=== PATIENT | female | born 1965 | race Caucasian/White ===

== ENCOUNTER 2016-07-29 17:29 | Emergency (ER) | payer OTHER ==
[~2016-07-29] VITALS: Ht 170.2 cm; Wt 59.2 kg
[~2016-07-29 17:29] MED LIST: ADDERALL XR 2525 MG PO; ADDERALL10 M1 PO; ADVAIR 250/501 DISK IH; ADVAIR 500/501 DISK IH; ALBUTEROL SULF8.5 GM IH; ALBUTEROL17 GM IH; ALLEGRA60 MG PO; AMLODIPINE BESYL5 MG PO; ATIVAN0.5 MG PO; ATIVAN1 MG PO; AUGMENTIN875 MG PO; AZITHROMYCIN500 M1 PO; CLINDAMYCIN HC300 MG PO; CYMBALTA30 MG PO; CYMBALTA60 MG PO; DIOVAN HCT 1601 EAC1 PO; DIOVAN160 MG PO; FLAGYL500 MG PO; FLONASE16 G1 BOTH NARES; HYDROCODON-ACE1 EA10 PO; HYDROCODON-ACE1 EAC9 PO; IBUPROFEN800 MG PO; IMITREX100 MG PO; KALETRA 100-251 EACH PO; LASIX10 MG PO; LASIX20 MG PO; LEVAQUIN750 MG PO; LEVOFLOXACIN500 MG PO; LORAZEPAM1 MG PO; LORTAB 10/500 T1 TAB PO; NEXIUM40 MG; NEXIUM40 MG PO; NICODERM CQ1 EAC2 TD; NICOTINE PATCH1 EAC2 TD; PERCOCET 5/31 TABLET PO; PREDNISONE10 MG PO; PRILOSEC20 MG PO; PROMETHAZINE HC25 M1 PO; PROVENTIL,2.5 MG/3 M IH; RELAFEN750 MG PO; SEROQUEL XR150 MG; SINGULAIR10 MG PO; SOMA350 MG PO; SPIRIVA1 INHALATI IH; TRAZODONE HCL100 MG PO; TRUVADA1 TABLET PO; TYLENOL WITH C1 EACH PO; UNABLE TO OBTAIN; VALSARTAN160 MG PO; VENTOLIN HFA18 GM IH; VICODIN HP 10-1 EACH PO; ZOFRAN4 MG PO
[2016-07-29] MEDS ORDERED: INDOCIN25 MG PO (18:54)
[2016-07-29 20:17] VITALS: BP 144/90
== END 2016-07-29 20:18 | disposition home or self-care (01) ==
LOC: EME 17:29
DX: M54.42 Lumbago with sciatica, left side (principal); G89.29 Other chronic pain; I10 Essential (primary) hypertension; J44.9 Chronic obstructive pulmonary disease, unspecified; J45.909 Unspecified asthma, uncomplicated; Z79.891 Long term (current) use of opiate analgesic; F17.200 Nicotine dependence, unspecified, uncomplicated
CPT/HCPCS: 99281; 99283; J1885; J3010

== ENCOUNTER 2016-10-03 11:55 | Emergency (ER) | payer OTHER ==
[~2016-10-03] VITALS: Ht 167.6 cm; Wt 64.1 kg
[~2016-10-03 11:55] MED LIST changes: +INDOCIN25 MG PO
[2016-10-03 12:32] LABS: INTER. NORMALIZED RATIO 1.2; PROTHROMBIN TIME 11.8 (9.2-11.2); PTT 39.5 (25-32)
[2016-10-03 12:40] LABS: AMYLASE 344 IU/L (1-118); CHLORIDE 96 mEq/L (99-109); SODIUM 140 mEq/L (136-147)
[2016-10-03 12:43] LABS: ANION GAP 33 MEQ/L (2-14)
[2016-10-03 12:45] LABS: SERUM ETHYL ALCOHOL < 10 mg/dL
[2016-10-03 12:46] LABS: GFR ESTIMATE (CALCULATED) 24 mL/min/; UREA NITROGEN (BUN) 25 mg/dL (9-23)
[2016-10-03 12:48] LABS: TROP-I INTERPRETATION NEGATIVE; TROPONIN-I 0.06 ng/mL (0.0-0.30)
[2016-10-03 12:49] LABS: LIPASE 163 U/L (1.0-51.0)
[2016-10-03 12:54] LABS: QUANTITATIVE HCG < 4.0 MIU/ML
[2016-10-03 13:04] LABS: POTASSIUM ND mEq/L (3.7-5.4)
[2016-10-03 13:08] LABS: GLUCOSE 37 mg/dL (70-99)
[2016-10-03 13:11] LABS: POINT-OF-CARE METER ID UU13113702
[2016-10-03 13:13] LABS: CARBOXY HGB 4.5 % (0-5); METHEMOGLOBIN 0.8 % (0-1.5); PO2 493 mm Hg (80-100)
[2016-10-03 13:16] LABS: PCO2 78 mm Hg (35-45)
[2016-10-03 13:17] LABS: COMMENTS - BLOOD GASES C+; DEVICE VENT; FI02 100 %; MODE AC; SITE RB; pH < 6.91 (7.35-7.45)
[2016-10-03 13:18] LABS: MECHANICAL RATE 14 resp/min; PEEP 5 CM/H20; TIDAL VOLUME 440 ML; TOTAL RESP RATE 19 resp/min
[2016-10-03 13:32] LABS: ADD MIUA? YES; BILIRUBIN NEGATIVE; BLOOD MODERATE; COLOR YELLOW ((YELLOW)); GLUCOSE (STRIP) >=500; KETONES NEGATIVE; LEUKOCYTES NEGATIVE; NITRITE NEGATIVE; PROTEIN (STRIP) 100; SPECIFIC GRAVITY 1.014 (1.000-1.030); UROBILINOGEN 0.2 MG/DL (0.2-1.0)
[2016-10-03 13:37] LABS: BASOPHIL COUNT 0.1 K/uL (0-0.1); EOSINOPHIL (%) 0.2 % (0-5); HEMATOCRIT 44.4 % (36.0-46.0); IMMATURE GRANULOCYTE (%) 2.1 % (0.0-0.7); IMMATURE GRANULOCYTE COUNT 0.3 K/uL; INSTRUMENT ABS NEUTROPHIL CT 11.7 K/uL; LYMPHOCYTE COUNT 1.9 K/uL (1.0-2.8); MCH 33.3 PG (29.0-34.0); MCHC 29.7 G/DL (30.0-36.0); MCV 112.1 FL (83-99); MEAN PLAT.VOLUME 9.8 uM^3 (9.5-12.4); MONOCYTE (%) 7.9 % (3-12); MONOCYTE COUNT 1.2 K/uL (0-0.8); NEUTROPHIL (%) 77.1 % (45-76); NEUTROPHIL COUNT 11.7 K/uL (1.8-6.4); NRBC (%) 0.3 /100 WBC (0-0); PLATELET COUNT 374 K/uL (156-360); RBC DIS.WIDTH-CV 13.8 % (11.8-14.6); RBC DIS.WIDTH-SD 56.9 % (39-53); RED BLOOD COUNT 3.96 M/uL (3.80-5.20); WHITE BLOOD COUNT 15.2 K/uL (4.1-10.2)
[2016-10-03 13:40] LABS: ADD MEDTOX COMMENT Y; AMPHETAMINE NEGATIVE (500 ng/mL); BACTERIA NONE SEEN /HPF; BARBITURATES NEGATIVE (200 ng/mL); BENZODIAZEPINES NEGATIVE (150 ng/mL); COCAINE NEGATIVE (150 ng/mL); EPITHELIAL CELLS RARE /HPF; HYALINE CASTS 0-5 /LPF; INTERNAL CONTROLS VALID? YES; METHADONE NEGATIVE (200 ng/mL); METHAMPHETAMINE NEGATIVE (500 ng/mL); MUCUS TRACE /LPF; OPIATES (MORPHINE) PRESUMPTIVE POSITIVE (100 ng/mL); OXYCODONE NEGATIVE (100 ng/mL); PHENCYCLIDINE NEGATIVE (25 ng/mL); PROPOXYPHENE NEGATIVE (300 ng/mL); RED BLOOD CELLS 0-5 /HPF (0-5); THC CANNABINOIDS NEGATIVE (50 ng/mL); TRICYCLIC ANTIDEPRESSANTS NEGATIVE (300 ng/mL); UCUL ADDED? NO; WHITE BLOOD CELLS 0-5 /HPF (0-5)
[2016-10-03 13:49] LABS: POTASSIUM 5.8 mEq/L (3.7-5.4)
[2016-10-03 13:56] LABS: CREATINE KINASE 328 IU/L (1-294)
[2016-10-03 14:28] LABS: BASE EXCESS 3.6 mEq/L (-3 to +3); BICARBONATE 34.8 mEq/L (22-26); CARBOXY HGB 3.4 % (0-5)
[2016-10-03 14:41] LABS: COMMENTS - BLOOD GASES C+; DEVICE VENT; FI02 80 %; MECHANICAL RATE 20 resp/min; MODE AC; PCO2 91 mm Hg (35-45); PO2 63 mm Hg (80-100); SITE LF ALINE; TOTAL RESP RATE 22 resp/min; pH 7.19 (7.35-7.45)
[2016-10-03 14:42] LABS: PEEP 5 CM/H20; TIDAL VOLUME 450 ML
[2016-10-03 14:57] LABS: CHLORIDE 95 mEq/L (99-109); SODIUM 144 mEq/L (136-147)
[2016-10-03 15:01] LABS: ANION GAP 29 MEQ/L (2-14); TOTAL BILIRUBIN 0.5 mg/dL (0.0-1.0)
[2016-10-03 15:03] LABS: ALKALINE PHOSPHATASE 90 IU/L (3-129); GFR ESTIMATE (CALCULATED) 28 mL/min/
[2016-10-03 15:04] LABS: UREA NITROGEN (BUN) 28 mg/dL (9-23)
[2016-10-03 15:11] LABS: GLUCOSE 216 mg/dL (70-99)
[2016-10-03 15:12] LABS: POTASSIUM 6.4 mEq/L (3.7-5.4)
[2016-10-03 15:40] LABS: BASE EXCESS 6.7 mEq/L (-3 to +3); BICARBONATE 37.7 mEq/L (22-26); CARBOXY HGB 2.9 % (0-5); METHEMOGLOBIN 0.6 % (0-1.5); PCO2 90 mm Hg (35-45); PO2 71 mm Hg (80-100)
[2016-10-03 15:42] LABS: POINT-OF-CARE METER ID UU13113702
[2016-10-03 15:42] LABS: DEVICE VENT; FI02 80 %; MECHANICAL RATE 20 resp/min; MODE AC; PEEP 5 CM/H20; SITE LF ALINE; TIDAL VOLUME 450 ML; TOTAL RESP RATE 21 resp/min; pH 7.23 (7.35-7.45)
[2016-10-03 15:43] LABS: CREATININE 1.5 mg/dL (0.6-1.3); POTASSIUM 4.3 mEq/L (3.7-5.4)
[2016-10-03 16:12] VITALS: BP 103/73
[2016-10-05 17:36] LABS: POINT-OF-CARE METER ID UU13113702
== END 2016-10-03 16:33 | disposition short-term general hospital (02) ==
LOC: EME → EDBD 11:55 → EME 16:33
PROVIDERS: Emergency Medicine
DX: I46.9 Cardiac arrest, cause unspecified (principal); E16.2 Hypoglycemia, unspecified; E87.5 Hyperkalemia; I95.9 Hypotension, unspecified; J96.02 Acute respiratory failure with hypercapnia; J44.9 Chronic obstructive pulmonary disease, unspecified; J45.909 Unspecified asthma, uncomplicated; I10 Essential (primary) hypertension; F17.200 Nicotine dependence, unspecified, uncomplicated
CPT/HCPCS: 36600; 70450; 71010; 71275; 74177; 80047; 80048; 80053; 81003; 82150; 82550 91; 82803; 82948; 83605; 83690; 84484; 84702; 84999; 85025; 85610; 85730; 86850; 86900; 86901; 87040; 87070; 87077; 87147; 87186; 87205; 93005; 94002; 94760; 99281; 99285; G0480; J1953; J2060; J7030; J7050